=== PATIENT | female | born 1990 | race Caucasian/White ===

== ENCOUNTER 2018-01-11 09:54 | Emergency (ER) | payer MEDICAID, SELFPAY ==
[2018-01-11 09:56] VITALS: BP 110/67; PULSE 116; RESP 20; TEMP 36.4; O2SAT 95; BMI 24.9
--- NOTE | 2018-01-11 10:18 | ED.VISSUMM ---
- ER Visit Summary Date of Service: 01/11/18 Chief Complaint: Nausea vomiting and diarrhea History of Present Illness: The patient is a 28 F who presents with nausea, vomiting, diarrhea that began 3 days ago. Patient states she initially thought it was food poisoning and started to feel better. Patient states that today the nausea, vomiting, diarrhea became worse again. Patient admits to some mild diffuse abdominal pain. Patient states she thought it was hunger pains and try to eat. Patient states she vomited everything that she ate. Patient denies any fevers or chills. Patient denies any chest pain or palpitations. Patient denies any hematemesis or coffee-ground emesis. Patient denies any melena or hematochezia. Patient denies any dysuria or hematuria. Physical Examination: Vital signs are stable except for tachycardia of 116. Patient is afebrile. Patient is in no acute distress. Oral mucosa is dry. Neck is supple. Trachea is midline. There is no JVD noted. Heart was regular and tachycardic. Lungs are clear and equal bilaterally. Abdomen is soft. Bowel sounds are normal. There is no tenderness noted. There is no guarding noted. Cranial nerves II through XII are intact. There are no focal motor or sensory deficits noted. The remaining physical exam is within normal limits. Test Results: CBC, metabolic profile, and urinalysis were obtained were within normal limits. Emergency Department Course and Treatment: Patient was given IV fluids and Zofran here. Patient was feeling better on reevaluation. Patient was given a prescription for Zofran. Patient was instructed to follow-up with her primary care physician in 5-7 days. Patient and family understood and were agreeable with the plan. All questions were answered. Disposition: Discharge home Impression: Nausea, vomiting, diarrhea This note was generated with [employer] dictation software. It may contain incorrect words, spelling, and punctuation that were not noted in review of the chart prior to signing ED Disposition - Plan for ED Patient: Disposition: Home or Assisted Living Chief Complaint: Nausea/Vomiting/Diarrhea Diagnosis: Nausea, vomiting, and diarrhea Instructions: ED Gastroenteritis Viral, ED Diet Vomiting Diarrhea Prescriptions: Ondansetron [Zofran Odt] 4 mg PO Q8H PRN PRN #10 tab PRN Reason: Nausea Referrals: Derek Cerna MD [Primary Care Provider] -
[2018-01-11] MEDS: Ondansetron 4 MG/2 ML Vial IV (10:51)
[2018-01-11] MEDS: 0.9% Normal Saline 1,000 ML 1000 ML IV (10:51)
[2018-01-11 11:17] LABS: Bacteria 0 SEEN /hpf (None Seen); Color, Urine Yellow (Yellow); Glucose, Dipstick Normal (Normal); Ketone-Dipstick Negative (Negative); Leukocyte Esterase-Dipstick Negative /ul (Negative); Mucous, Urine 0 SEEN /hpf (<or=2+); Nitrite-Dipstick Negative (Negative); Occult Blood-Urine Negative /ul (Negative); Protein-Dipstick Negative (Negative); Red Blood Cells-Urine 0 SEEN /hpf (0-5); Specific Gravity, Urine 1.005 (1.002-1.030); Urine Bilirubin Dipstick Negative (Negative); Urine Clarity Sl. Cloudy (Clear); Urine Urobilinogen Normal (Normal); Urine pH 6.5 (5.0 - 8.0); White Blood Cells 0 SEEN /hpf (0-5)
[2018-01-11 11:22] LABS: ALB/GLOB Ratio 0.9 RATIO (0.9-2.4); AST(SGOT) 16 U/L (15-37); Absolute Lymphocyte Count 0.98 X10^3/ul (0.83-4.51); Absolute Neutrophil Count 6.5 X10^3/uL (2.0-7.7); Alanine Aminotransfer ALT/SGPT 32 U/L (13-56); Albumin, Serum 3.7 g/dL (3.2-5.0); Alkaline Phosphatase 38 U/L (45-117); Anion Gap 10 (5-15); BUN 8 mg/dL (7-18); BUN/Creat Ratio 9.3 RATIO (10-20); Basophil# 0.01 X10^3/uL; Basophil% 0.1 % (0-1); Calcium,Total 8.9 mg/dL (8.5-10.1); Chloride 101 mmol/L (98-107); Creatinine, Serum 0.86 mg/dL (0.55-1.02); EST Glomerular Filtration Rate 83 mL/min (>60); Eosinophil# 0.03 X10^3/uL; Eosinophils% 0.4 % (0-5); Est Glom Filt Rate - Afr Amer 100 mL/min (>60); Estimated Creatinine Clearance 103.44 ml/min; Globulin 3.9 g/dL (2.2-4.2); Glucose 100 mg/dL (74-106); Hematocrit 41.9 % (37-47); Hemoglobin 15.1 g/dl (12.0-15.0); Lipase 76 U/L (73-393); Lymphocyte # 0.98 X10^3/ul (4.0); Lymphocyte % 11.5 % (19-41); Mean Corpuscular Hgb 31.1 pg (27.0-32.0); Mean Corpuscular Volume 86.2 fL (81-99); Mean Platelet Vol. 11.9 fl (6.2-12.0); Monocyte# 0.92 X10^3/uL; Monocyte% 10.8 % (0-10); Neutrophil # 6.53 X10^3/uL (2.7-7.7); Neutrophil % 76.8 % (47-70); Platelet Count 208 K/mm3 (150-450); Potassium 3.4 mmol/L (3.5-5.1); Protein, Total 7.6 g/dL (6.4-8.2); RBC Distribution Width CV 12.5 % (11.6-14.6); RBC Distribution Width SD 39.1 fl (35.1-43.9); Red Blood Count 4.86 M/mm3 (4.2-5.4); Sodium Level 136 mmol/L (136-145); White Blood Count 8.5 K/mm3 (4.4-11.0)
[2018-01-11 11:28] LABS: POSITIVE COUNT NO; POSITIVE DIFFERENTIAL NO; POSITIVE MORPHOLOGY NO
[2018-01-11 11:32] LABS: Squamous Epithelial Cells - UA 0-5 SEEN /hpf (5-10)
[2018-01-11 12:17] VITALS: BP 117/78; PULSE 71; RESP 18; O2SAT 99
== END 2018-01-11 12:18 | disposition home or self-care (01) ==
PROVIDERS: Emergency Provider Emergency Medicine; Family Provider Family Medicine; PCP Family Medicine
DX: R11.2 Nausea with vomiting, unspecified (principal); R19.7 Diarrhea, unspecified; R10.84 Generalized abdominal pain; R00.0 Tachycardia, unspecified
CPT/HCPCS: 80053; 81001; 83690; 85025; 96361; 96374; 99283; J2405